=== PATIENT | female | born 1985 | race Caucasian/White ===

== ENCOUNTER 2024-01-16 10:04 | Outpatient (CLI) | payer BC, SELFPAY | END 2024-01-16 10:05 | disposition home or self-care (01) | LOC: LKVREF 10:05 | PROVIDERS: Visit Provider Nurse Practitioner Family | DX: L08.9 Local infection of the skin and subcutaneous tissue, unspecified (principal); W57.XXXA Bitten or stung by nonvenomous insect and other nonvenomous arthropods, initial encounter | CPT/HCPCS: 86618 ==